=== PATIENT | male | born 1995 | race Caucasian/White ===

== ENCOUNTER 2017-07-03 08:28 | Emergency (ER) | payer OTHER ==
--- NOTE | 2017-07-03 08:49 | EDM.PDOC ---
ED HPI GENERAL MEDICAL PROBLEM - General Chief Complaint: Respiratory Problem Stated Complaint: FLU Time Seen by Provider: 07/03/17 08:42 Source of Information: Reports: Patient History Limitations: Reports: No Limitations - History of Present Illness INITIAL COMMENTS - FREE TEXT/NARRATIVE: 21 yo male presents with cough, nasal congestion, and fever. Has not had a flu shot. Came from work. No antipyretics taken. No known exposures. Is a smoker. Onset Date: 07/02/17 Duration: Hour(s):, Constant Location: Reports: Face, Chest Quality: Reports: Other (No pain) Severity: Mild Improves with: Reports: None Worsens with: Reports: None Context: Reports: Other (unknown) Associated Symptoms: Reports: Cough, Fever/Chills, Loss of Appetite. 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 Denies: Ear Discharge, Ear Pain, Nosebleed, Throat Pain, Throat Swelling Respiratory: Reports: Cough. Denies: Shortness of Breath, Hemoptysis Cardiovascular: Reports: No Symptoms GI/Abdominal: Reports: No Symptoms : Reports: No Symptoms Musculoskeletal: Reports: No Symptoms Skin: Reports: No Symptoms Neurological: Reports: No Symptoms Psychiatric: Reports: No Symptoms ED EXAM, GENERAL - Physical Exam Exam: See Below Exam Limited By: No Limitations General Appearance: Alert, WD/WN, No Apparent Distress Eye Exam: Bilateral Eye: Normal Inspection Ears: Normal External Exam, Normal Canal, Hearing Grossly Normal, Normal TMs Ear Exam: Bilateral Ear: Auricle Normal, Canal Normal, TM normal Nose: No Blood, Nasal Drainage, Clear Rhinorrhea. No: Nasal Flaring Throat/Mouth: Normal Inspection, Normal Lips, Normal Oropharynx, Normal Voice, No Airway Compromise Head: Atraumatic, Normocephalic Neck: Normal Inspection, Supple, Non-Tender Respiratory/Chest: No Respiratory Distress, Lungs Clear, Normal Breath Sounds, No Accessory Muscle Use Cardiovascular: Regular Rate, Rhythm, No Edema GI/Abdominal: Normal Bowel Sounds, Soft, Non-Tender, No Distention Back Exam: Normal Inspection. No: CVA Tenderness (R), CVA Tenderness (L) Extremities: Normal Inspection, Normal Range of Motion, Non-Tender, No Pedal Edema Neurological: Alert, Oriented, CN II-XII Intact, Normal Cognition, No Motor/ Sensory Deficits Psychiatric: Normal Affect, Normal Mood Skin Exam: Warm, Dry, Intact, Normal Color, No Rash Lymphatic: No Adenopathy Course - Vital Signs Last Recorded V/S: Last Vital Signs Temp 37.0 C 07/03/17 08:35 Pulse 110 H 07/03/17 08:35 Resp 18 07/03/17 08:35 BP 130/67 07/03/17 08:35 Pulse Ox 99 07/03/17 08:35 Departure - Departure Time of Disposition: 09:17 Disposition: Home, Self-Care 01 Condition: Good Clinical Impression: Viral URI with cough - Discharge Information Forms: ED Department Discharge
== END 2017-07-03 09:29 | disposition home or self-care (01) ==
LOC: FB.ED 08:28
DX: J06.9 Acute upper respiratory infection, unspecified (principal); Z88.0 Allergy status to penicillin
CPT/HCPCS: 87804; 99283